=== PATIENT | female | born 1970 | race Caucasian/White ===

== ENCOUNTER 2020-05-12 19:17 | Emergency (ER) | payer MEDICAID ==
[~2020-05-12] VITALS: Ht 172.7 cm; Wt 133.2 kg
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
[2020-05-12 19:40] VITALS: BP 139/87
[2020-05-12] MEDS ORDERED: HYDROcodone/APAP 5/325MG 1 TAB TABLET PO ONE (20:00)
--- NOTE | 2020-05-12 20:32 | RAD ---
KNEE RIGHT 4V History: Reason: FALL, PAIN / Spl. Instructions: / History: Technique: 4 views right knee. Comparison: None. Findings: Normal alignment. No fracture. No significant knee joint effusion. Soft tissues unremarkable. Mild medial and patellofemoral compartment degenerative changes. Impression: 1. No acute osseous abnormality. Electronically signed by: Sam Hilario DO (05/12/2020 8:29 PM) [facility]
--- NOTE | 2020-05-12 20:35 | RAD ---
LUMBAR SPINE MIN 4V History: Reason: FALL, PAIN / Spl. Instructions: / History: Technique: 5 views lumbar spine. Comparison: None. Findings: T11 mild superior endplate compression fracture. Normal alignment. Multilevel degenerative disc changes most prominent moderate L4-5. Lower lumbar facet arthropathy. Impression: 1. Chronic appearing mild T11 compression fracture although age indeterminate. Recommend correlation with point tenderness. If persistent clinical concern, CT or MRI can further evaluate. 2. Multilevel lumbar spondylosis most prominent L4-5. Electronically signed by: Sam Hilario DO (05/12/2020 8:32 PM) [facility]
--- NOTE | 2020-05-12 22:07 | RAD ---
CT thoracic spine without contrast History: Reason: TRAUMA WITH POINT TENDERNESS / Spl. Instructions: / History: Axial helical images of the thoracic spine were obtained without contrast. Axial, coronal and sagittal reconstruction was performed. Findings: The vertebral bodies are aligned. There is no loss of vertebral body stature. Evaluation of the central canal is limited without contrast. There is no evidence of significant central or neuroforaminal stenosis. Impression: No acute findings. End impression CT lumbar spine without contrast: Axial helical images of the lumbar spine were obtained without contrast. Axial, coronal and sagittal reconstruction was performed. Findings: The vertebral bodies are aligned. There is no loss of vertebral body stature. Evaluation of the central canal is limited without contrast. There is loss of intervertebral disc height and marginal spurring and eburnation endplates at L4-L5. The diffuse disc bulges resulting in multilevel mild central stenosis. There is moderate narrowing of the neuroforamen bilaterally below the level exiting nerve roots at L3-L4 and L4-5 and there is loss of fat around the exiting nerve root bilaterally at L3-L4. Impression: Degenerative changes with multilevel central and neuroforaminal stenosis. There is compression of the intraforaminal course the exiting nerve roots bilaterally at L3-L4. No acute findings End impression PQRS Compliance Statement: One or more of the following individualized dose reduction techniques were utilized for this examination: 1. Automated exposure control 2. Adjustment of the mA and/or kV according to patient size 3. Use of iterative reconstruction technique Electronically signed by: Salomón Terry III, MD (05/12/2020 10:04 PM) [facility]
[2020-05-12] MEDS ORDERED: clonazePAM 1 MG TABLET PO STA (22:18)
[2020-05-12] MEDS ORDERED: clonazePAM 1 MG TABLET ONE (22:30)
[2020-05-12] MEDS ORDERED: GABAPENTIN 100 MG CAPSULE. PO ONE ×2 (22:30)
[2020-05-12] MEDS ORDERED: WARFARIN 5 MG TABLET. ONE (22:30)
[2020-05-12] MEDS ORDERED: WARFARIN 5 MG TABLET. PO ONE (22:30)
== END 2020-05-12 22:40 | disposition home or self-care (01) ==
LOC: ER 19:17
DX: S80.01XA Contusion of right knee, initial encounter (principal); M54.41 Lumbago with sciatica, right side; R56.9 Unspecified convulsions; X58.XXXA Exposure to other specified factors, initial encounter; Y93.89 Activity, other specified; Y92.89 Other specified places as the place of occurrence of the external cause; Y99.8 Other external cause status
CPT/HCPCS: 72110; 72128; 72131; 73564; 99285